=== PATIENT | male | born 1975 | race Hispanic/Latino ===

== ENCOUNTER 2024-02-25 19:06 | Emergency (ER) | payer OTHER ==
[~2024-02-25] VITALS: Ht 160 cm; Wt 81.6 kg
[2024-02-25 19:27] VITALS: TEMP 98.6
[2024-02-25 19:45] LABS: BASOPHILS # (AUTO) 0.1 (0.0-0.1); BASOPHILS % 0.6 % (0.0-1.0); EOSINOPHILS # (AUTO) 0.1 (0.0-0.4); EOSINOPHILS % 0.5 % (0.0-6.0); HEMATOCRIT 43.6 % (38.2-49.6); HEMOGLOBIN 13.9 g/dL (14.0-18.0); LYMPHOCYTES # (AUTO) 2.2 (1.0-3.2); LYMPHOCYTES % 13.3 % (18.0-39.1); MEAN CORPUSCULAR HGB CONC 31.9 g/dL (31-35); MONOCYTES # (AUTO) 0.9 (0.2-0.8); MONOCYTES % 5.6 % (4.4-11.3); NEUTROPHILS % 77.6 % (38.7-80.0); PLATELET COUNT 290 x10e3/uL (140-360); RED BLOOD COUNT 4.79 x10e6/uL (4.3-5.7); RED CELL DISTRIBUTION WIDTH 13.6 % (11.7-14.4); WHITE BLOOD COUNT 16.73 x10e3/uL (4.8-10.8)
[2024-02-25] MEDS: CLINDAMYCIN PHOS 900MG/ 50ML 50 ML IV ONE (20:04)
[2024-02-25 20:06] LABS: ALBUMIN 4.1 g/dL (3.5-5.0); ANION GAP 18.3 mmol/L (8-16); BILIRUBIN,TOTAL 0.9 mg/dL (0.2-1.2); CALCIUM 10.1 mg/dL (8.4-10.2); CREATININE, SERUM 1.31 mg/dL (0.72-1.25); POTASSIUM 4.3 mmol/L (3.5-5.1); TOTAL PROTEIN 8.3 g/dL (6.5-8.1)
[2024-02-25] MEDS ORDERED: CLEOCIN HCL300 MG PO (21:09)
[2024-02-25 21:15] VITALS: PULSE 99; RESP 18
[2024-02-25] MEDS ORDERED: BACTRIM DS TAB1 EACH PO (21:18)
[2024-02-25] MEDS ORDERED: ULTRAM 50MG50 MG PO (21:18)
[2024-02-25] MEDS ORDERED: PREDNISONE20 MG PO (21:37)
[2024-02-25 21:38] VITALS: BP 165/100; O2SAT 97
== END 2024-02-25 21:39 | disposition home or self-care (01) ==
LOC: ER 19:16
DX: L03.031 Cellulitis of right toe (principal); M10.9 Gout, unspecified
CPT/HCPCS: 36415; 80053; 85025; 99284